=== PATIENT | female | born 1960 | race Caucasian/White ===

== ENCOUNTER 2022-08-10 14:03 | Inpatient (IN) | payer OTHER, BC ==
[~2022-08-10] VITALS: Ht 160 cm; Wt 64.9 kg
[2022-08-10 14:19] LABS: BASOPHILS ABSOLUTE AUTO 0.02 K/mm3 (0.00-0.23); BASOPHILS PERCENT AUTO 0 % (0-2); EOSINOPHILS ABSOLUTE AUTO 0.08 K/mm3 (0.00-0.68); EOSINOPHILS PERCENT AUTO 1 % (0-6); Hemoglobin 12.8 g/dL (11.5-16.0); IMMATURE GRAN ABSOLUTE AUTO 0.06 K/mm3 (0.00-0.10); IMMATURE GRAN PERCENT AUTO 1 % (0-1); LYMPHOCYTES ABSOLUTE AUTO 2.36 K/mm3 (0.84-5.20); LYMPHOCYTES PERCENT AUTO 29 % (21-46); MONOCYTES ABSOLUTE AUTO 0.47 K/mm3 (0.16-1.47); MONOCYTES PERCENT AUTO 6 % (4-13); Mean Corpuscular HGB 32.6 pg (26.0-34.0); Mean Corpuscular HGB Conc 34.6 g/dL (31.5-36.5); Mean Corpuscular Volume 94 fL (80-100); Mean Platelet Volume 11.7 fL (9.1-12.4); NEUTROPHILS ABSOLUTE AUTO 5.27 K/mm3 (1.96-9.15); NEUTROPHILS PERCENT AUTO 64 % (41-73); Platelet Count 208 K/mm3 (150-400); RDW Coefficient Variation 11.8 % (11.7-14.2); RDW Standard Deviation 41.1 fL (35.1-46.3); Red Blood Cell Count 3.93 M/mm3 (3.80-5.20); White Blood Cell Count 8.26 K/mm3 (4.00-11.30)
[2022-08-10 14:36] LABS: Alanine Aminotransfer (ALT/SGP 54 U/L (12-78); Albumin, Blood 3.2 g/dL (3.4-5.0); Albumin/Globulin Ratio 1.2 (0.8-1.8); Alk Phos 65 U/L (50-136); Anion Gap 6 mmol/L (6-16); Aspartate Aminotrans (AST/SGOT 46 U/L (12-37); Bilirubin, Total 0.2 mg/dL (0.1-1.0); Blood Urea Nitrogen 17 mg/dL (8-24); Bun/Creatinine Ratio 31.8 (12.0-20.0); CO2, Blood 27 mmol/L (21-32); Calcium, Blood 8.2 mg/dL (8.5-10.1); Chloride, Blood 109 mmol/L (98-108); Creatinine, Blood 0.53 mg/dL (0.40-1.00); Ethanol (Alcohol), Blood, Med <3 mg/dL; Globulin, Blood 2.6 g/dL (2.2-4.0); Glomerular Filtration Rate 103 (60-); Glucose, Blood 115 mg/dL (70-99); Potassium, Blood 3.7 mmol/L (3.5-5.5); Sodium, Blood 142 mmol/L (136-145); Total Protein, Blood 5.8 g/dL (6.4-8.2)
[2022-08-10] MEDS ORDERED: Tegretol Xr400 MG PO (15:19)
[2022-08-10] MEDS ORDERED: LEVE500 PO (15:19)
[2022-08-10] MEDS ORDERED: MELO7.5 PO (15:20)
[2022-08-10] MEDS ORDERED: ESCI10 PO (15:20)
[2022-08-10] MEDS ORDERED: BUSP10 PO (15:20)
[2022-08-10 15:57] LABS: Source, Urine Clean Catch
[2022-08-10 16:01] LABS: Appearance, Urine Clear (Clear); Bilirubin, Urine Neg (Neg); Blood, Urine 1+ (Neg); Color, Urine Yellow (P-Yellow); Glucose Qualitative, Urine Neg (Neg); Ketones, Urine Neg (Neg); Leukocyte Esterase, Urine Neg (Neg); Nitrite, Urine Neg (Neg); Protein, Urine Neg (Neg); Urobilinogen, Urine NORM (Normal)
[2022-08-10 16:08] LABS: Bacteria Rare /hpf; Squamous Epithelial Cells Rare /hpf (Few); White Blood Cells, Urine 0-2 /hpf (0-5)
[2022-08-10 16:14] LABS: U Amphetamine Screen Not Detected; U Barbituate Screen Not Detected; U Benzodiazapine Screen Not Detected; U Buprenorphine Screen Not Detected; U Cannabinoids Screen Not Detected; U Cocaine Screen Not Detected; U Methadone Screen Not Detected; U Methamphetamine Screen Not Detected; U Opiates Screen DETECTED; U Oxycodone Screen Not Detected; U Phencyclidine Screen Not Detected; U Propoxyphene Screen Not Detected
[2022-08-10] MEDS ORDERED: Simvastatin20 MG PO (21:33)
[2022-08-10] MEDS ORDERED: CARBATROL300 M1 PO (21:58)
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
[2022-08-11 00:12] LABS: Hematocrit 33.5 % (33.0-51.0); Hemoglobin 11.5 g/dL (11.5-16.0)
--- NOTE | 2022-08-11 01:04 | NUR ---
ASSUMED CARE OF PATIENT AT 0012 AFTER TX TO ICU. PT CURRENTLY IN PROCEDURE TO PLACE TEMPORARY PACEMAKER. AUTHOR CALLED [facility] ([phone]) AND LEFT VOICEMAIL TO PLEASE CALL BACK RE: UPDATES. NO DETAIL LEFT ON VM.
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
--- NOTE | 2022-08-11 02:41 | NUR ---
PT RETURNS FROM TV PACER PLACEMENT AT APPROX 0205. SHE LOOKS MORE COMFORTABLE AND SEEMS MORE AWAKE. NO SEDATION GIVEN DURING PROCEDURE. CATH NURSES PERFORMED TEST ON DEVICE AT BEDSIDE; RATE 60, SENSE 5.0, OUTPUT 2.0. PLACED DROP BOOT ON LLE FOR COMFORT AND PT GIVEN PRN MEDICATIONS FOR DISCOMFORT IN L CALF, L ANKLE, R WRIST AND LUMBAR AREA.
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
--- NOTE | 2022-08-11 07:41 | NUR ---
ASSUMED CARE PT IS ALERT AND ORIENTED X4. SPO2 >92% ON RA. MAP >65. RIGHT IJ TRANSVENOUS PACING RATE 60, MA 5, SENS 2. PT HAS GOOD CAP REFILL ON ALL EXTREMETIES AND HAS MINIMAL COMPLAINTS OF PAIN AT TIME OF THIS ASSESSMENT. HR IN THE 60-70S W/ ONE EPISODE OF PACING THIS AM.
--- NOTE | 2022-08-11 10:53 | NUR ---
UPDATE DR LUDWIG IN TO SEE PT. DECISION TO FIX RIGHT WRIST FX TODAY. DR NGUYEN SAID THAT PACEMAKER WILL BE PLACED TOMORROW. SURGICAL PACKET STARTED.
--- NOTE | 2022-08-11 14:08 | NUR ---
UPDATE PT REFUSED TURN. EDUCATED PT ABOUT IMPORTANCE OF REPOSITIONING. ENCOURAGED AND OFFERED TO HELP MOVE LEFT LEG (FX) TO HELP ALLEVIATE PAIN WHEN REPOSITIONING. STILL REFUSED. ADVISED PT TO AT LEAST TRY TO ALTERNATE/REPOSITION BOTTOM MUCH POSSIBLE INDEPENDENTLY.
--- NOTE | 2022-08-11 15:13 | NUR ---
UPDATE TAKEN TO OR BY DR ELIZONDO AND SIOMARA HUERTA.
--- NOTE | 2022-08-11 17:13 | NUR ---
UPDATE PT BACK FROM OR. TRANSCUTANEOUS PACER MALFUNCTIONED AND WAS NOT CAPTURING WHILE PT RUBY'D DOWN TO THE 40S. TRANSVENOUS PACER IS 50CM. DR NGUYEN AWARE. XRAY TO BE TAKEN.
--- NOTE | 2022-08-11 17:19 | NUR ---
UPDATE KANNAN HUERTA FROM [facility] TESTED TRANSVENOUS PACER AND SAW THE DIAPHRAGM AND CHEST WALL WAS MOVING WITH PACER. SHE WILL COMMUNICATE WITH DR NGUYEN W/ RUMAAY RESULTS.
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
--- NOTE | 2022-08-12 04:21 | NUR ---
NO SIGNIFICANT EVENTS OVERNIGHT. VSS. PT SLEEPING WELL.
--- NOTE | 2022-08-12 08:17 | NUR ---
ASSUMED CARE PT IS ALERT AND ORIENTED X4. SPO2 >92% ON RA; MAP >65; HR 60-70S. PT HAD NO RUBY EPISODES/PAUSES OVERNIGHT PER OFFGOING RN. NO C/O OF CP, SOB, OR NAUSEA. PT HAS C/O OF CRAMPING/PAIN IN HER LEFT LEG. REFUSES ATTEMPTS AT REPOSITIONING SIDE TO SIDE OR REMOVAL OF BOOT (BOOT IS NOT ORDERED FOR PT). CAP REFILL <3 AND WARM EXTREMITIES X4. PT ABLE TO WIGGLE FINGERS/TOES IN AFFECTED LIMBS.
--- NOTE | 2022-08-12 16:01 | NUR ---
Rt IJ sheath removal: Temporary pacer wire to rt IJ removed by Dr. Berry yesterday. Sheath to Rt IJ removed at this time, without complications. Direct pressure held for 12 minutes. No s/s of bleeding, hematoma, or air emboli. Clear occlusive dressing in place.
--- NOTE | 2022-08-12 17:04 | NUR ---
ARRIVAL NOTE PT ARRIVE TO THE SURGICAL FLOOR FROM ICU IN HER BED AND WAS TRANSFERRED OVER TO HER NEW BED BY ICU SHEET CATCHER AND PCT. PT PRESENTED IN STABLE CONDITION REPORTING SOME PAIN TO HER L LOWER CALF. WILL CTM.
--- NOTE | 2022-08-13 04:23 | NUR ---
POD2 FOR METACARPAL PINNING. CIRCULATION AND SENSATION REMAINS INTACT. LISA WRAP REMAINS C/D/I. LLE CIRCULATION AND SENSATION REMAINS INTACT. SPLINT ON LLE REWRAPPED, QUARTER SIZE REDDENDED AREA, SLOW TO ALBERTA, NOTED. GAUZE PLACED BETWEEN THE PATIENTS BUNION AND SPLINT. VSS. PT SLEPT WELL T/O THE NIGHT. MEDICATED FOR PAIN WITH NORCO AND FENT FOR BREAKTHROUGH PAIN AT THE BEGINNING OF THE SHIFT. TELE IN PLACE, SR 61, NO ACUTE EVENTS NOTED. PLAN FOR PT TO WORK WITH PT/OT AND BE EVALUATED FOR D/C HOME WITH HH OR SNF. THE PATIENT IS CURRENTLY RESTING, IN NO DISTRESS, CALL LIGHT IN REACH.
[2022-08-13 04:59] LABS: Hematocrit 30.5 % (33.0-51.0); Hemoglobin 10.4 g/dL (11.5-16.0); Mean Corpuscular HGB 32.3 pg (26.0-34.0); Mean Corpuscular HGB Conc 34.1 g/dL (31.5-36.5); Mean Corpuscular Volume 95 fL (80-100); Mean Platelet Volume 11.9 fL (9.1-12.4); Platelet Count 135 K/mm3 (150-400); RDW Coefficient Variation 11.9 % (11.7-14.2); RDW Standard Deviation 41.5 fL (35.1-46.3); Red Blood Cell Count 3.22 M/mm3 (3.80-5.20); White Blood Cell Count 3.64 K/mm3 (4.00-11.30)
[2022-08-13 05:14] LABS: Albumin, Blood 2.5 g/dL (3.4-5.0); Anion Gap 5 mmol/L (6-16); Blood Urea Nitrogen 10 mg/dL (8-24); Bun/Creatinine Ratio 19.5 (12.0-20.0); CO2, Blood 27 mmol/L (21-32); Calcium, Blood 7.7 mg/dL (8.5-10.1); Chloride, Blood 112 mmol/L (98-108); Creatinine, Blood 0.51 mg/dL (0.40-1.00); Glomerular Filtration Rate 104 (60-); Glucose, Blood 91 mg/dL (70-99); Phosphorus, Blood 3.7 mg/dL (2.5-4.9); Potassium, Blood 3.9 mmol/L (3.5-5.5); Sodium, Blood 144 mmol/L (136-145)
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
--- NOTE | 2022-08-14 04:48 | NUR ---
POD3 FOR A RIGHT METACARPAL PINNING. SENSATION AND CIRCULATION REMAIN INTACT IN RUE, DRESSING IS C/D/I. SPLINT ON LLE REMAINS INTACT, CIRCULATION AND SENSATION ARE PRESENT. VSS. PT HAS BEEN NPO SINCE 0000 IN ANTICIPATION FOR PACEMAKER PLACEMENT TODAY. THE PT SLEPT WELL T/O THE NIGHT, WAS ABLE TO AMBULATE MORE IN BED COMPARED TO PREVIOUS SHIFT ASSESSMENT. MEDICATED FOR PAIN WITH NORCO, BENADRYL FOR ITCHING. TELE IN PLACE, SR 52. PT REMAINS ASYMPTOMATIC OF BRADYCARDIA. SHARIF IN PLACE, DRAINING TO GRAVITY. PLAN FOR PT TO D/C TO SNF CLOSER TO [facility] WHERE SHE IS MOVING TO. THE PATIENT IS CURRENTLY SLEEPING, IN NO DISTRESS, CALL LIGHT IN REACH
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
--- NOTE | 2022-08-14 14:14 | NUR ---
1300 TO HEART CENTER VIA BED FOR PACEMAKER PLACEMENT
--- NOTE | 2022-08-14 16:27 | NUR ---
1600 RETURN TO ROOM FROM HEART CENTER. PTS AT BEDSIDE. TELEMETRY SHOWS SR. LEFT UPPER CHEST DRESSING CLEAN, DRY AND INTACT. PT REINSTRUCTED TO NOT RAISE LEFT ARM ABOVE SHOULDER LEVEL. PT DENIES ANY PAIN OR DISCOMFORT TO PACEMAKER SITE
--- NOTE | 2022-08-14 16:47 | NUR ---
LEFT UPPER CHEST DRESSING REMAINS CLEAN,DRY INTACT. NO BRUISING NOTED. MILD EDEMA AT SITE
--- NOTE | 2022-08-14 17:07 | NUR ---
LEFT CHEST PACEMAKER SITE DRESSING CLEAN, DRY AND INTACT. MINIMAL SWELLING AT SITE, NO BRUISING. PT DENIES ANY NUMBNESS OR PAIN OF EXTREMITIES, PT ABLE TO MOVE BILAT TOES AND FINGERS SPONTANEOUSLY. SPLINT IN PLACE TO RIGHT WRIST FINGERS WARM WITH CAPILLARY REFILL LESS THAN 3 SECONDS. LEFT LOWER EXTREMITY SPLINT IN PLACE, TOES PINK, WARM WITH CAPILLARY REFILL LESS THAN 3 SECONDS. PT ORIENTED, SOMETIMES REPEATS SAME QUESTIONS WITHIN A FEW MINUTES. PT CHEERFUL, COOPERATIVE
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
--- NOTE | 2022-08-15 17:19 | NUR ---
DR JOSSELYN LUDWIG HERE TO SEE PATIENT. PT REPORTS PAIN IS ADEQUATELY CONTROLLED. RIGHT ARM SPLINT INTACT. PT DENIES NUMBNESS OR TINGLING. PT REPORTS RIGHT LITTLE FINGER SLIGHTLY PAINFUL AND THAT SHE DID DISCUSS THIS WITH DR GARCIA. LLE SPLINT INTACT AND PT DENIES NUMBNESS OR TINGLING, FEET WARM WITH CAPILLARY REFILL LESS THAN 3 SECONDS. LEFT CHEST PACEMAKER INSERTION SITE WITH SCANT DRIED BLOODY DRAINAGE, NO BRUISING VISIBLE. PT REMOVES LEFT ARM SLING AT TIMES AND NEEDS VERBAL REMINDERS TO NOT RAISE LEFT ARM ABOVE SHOULDER LEVEL. PT MEDICATED X1 WITH PO BENADRYL AND X1 WITH BENADRYL CREAM FOR ITCHY RASH ON BACK.
--- NOTE | 2022-08-16 03:36 | NUR ---
SUMMARY NO NEW ISSUES NOTED. PT DISCOMFORT HAS BEEN MINIMAL. PT HAS BEEN ABLE TO SLEEP WELL. PACEMAKER SITE UNREMARKABLE. PT SHARIF DRAINING TO GRAVITY. CALL LIGHT IN REACH.
[2022-08-16 05:27] LABS: Hematocrit 34.9 % (33.0-51.0); Hemoglobin 12.2 g/dL (11.5-16.0); Mean Corpuscular HGB 32.1 pg (26.0-34.0); Mean Corpuscular Volume 92 fL (80-100); Mean Platelet Volume 11.4 fL (9.1-12.4); Platelet Count 213 K/mm3 (150-400); RDW Coefficient Variation 11.6 % (11.7-14.2); RDW Standard Deviation 38.8 fL (35.1-46.3); White Blood Cell Count 4.01 K/mm3 (4.00-11.30)
[2022-08-16 05:51] LABS: Anion Gap 5 mmol/L (6-16); Blood Urea Nitrogen 13 mg/dL (8-24); Bun/Creatinine Ratio 27.8 (12.0-20.0); CO2, Blood 27 mmol/L (21-32); Calcium, Blood 8.4 mg/dL (8.5-10.1); Chloride, Blood 111 mmol/L (98-108); Creatinine, Blood 0.47 mg/dL (0.40-1.00); Glomerular Filtration Rate 106 (60-); Glucose, Blood 102 mg/dL (70-99); Phosphorus, Blood 3.7 mg/dL (2.5-4.9); Potassium, Blood 3.8 mmol/L (3.5-5.5); Sodium, Blood 143 mmol/L (136-145)
[2022-08-16] MEDS ORDERED: MELO7.5 PO (10:09)
--- NOTE | 2022-08-16 14:39 | NUR ---
SPLINT TO LEFT LEG REMOVED, PER DR LUDWIG ORDERS. KNEE-HIGH COOMPRESSION SOCK PLACED TO BLE, WALKING BOOT FITTED AND PALCED BY [employer].
--- NOTE | 2022-08-16 18:02 | NUR ---
SHIFT [facility] POD 5 PINNING/I & D OF R METATARSALS. GAUZE & SPLINT IN PALCE TO RIGHT WRIST. PAIN MANAGED PER EMAR. SPLINT ON LEFT ANKLE REMOVED TODAY AND WALKING BOOT FITTED AND PLACED. KNEE-HIGH YUE HOSE IN PLACE. PATIENT TRANSFERRING WELL WITH MINIMAL ASSISTANCE TO BSC & CHAIR. NEEDS ENCOURAGMENT TO BE UP OUT OF BED. EATING, DRINKING, & VOIDING WELL. DENIES N/V. POD 2 PACEMAKER PALCEMENT, PATIENT DENIES PAIN TO SITE, DENIES CP/PRESSURE/SOB. SITE APPEARS WNL. LEFT ARM PRECAUTIONS STILL IN PLACE FROM PACEMAKER PLACEMENT. CALLS APPROPRIATELY, WILL REPORT TO ONCOMING RN.
--- NOTE | 2022-08-17 04:13 | NUR ---
SUMMARY NO NEW ISSUES NOTED. PT HAS BEEN AMBULATORY THIS SHIFT. PT HAS BEEN UP TO VOID WITHOUT DIFFICULTY. PT HAD NO TELE ISSUES REPORTED. PT DENIES PAIN AND HAS BEEN RESTING COMFORTABLY. CALL LIGHT IN REACH.
--- NOTE | 2022-08-17 16:18 | NUR ---
SHIFT SUMMARY NO ACUTE CHANGES THIS SHIFT. PATIENT IS POD 6 PERC PINNING/I&D OF RIGHT HAND. SPLINT IN PLACE, C/D/I. WALKING BOOT TO LEFT FOOT D/T LEFT ANKLE FRACTURE. POD 3 FOR PACEMAKER PLACEMENT, DRESSING HAS LIGHT SHADOWING, BUT DRY & INTACT. PATIENT DENIES ANY CP/PRESSURE/SOB T/O SHIFT. MINIMAL PAIN THIS SHIFT, NO PAIN MEDICATIONS REQUIRED. PATIENT UP TO CHAIR FOR MEALS, AMBULATED IN HALLWAYS X1 W/ WALKER AND GB, TOLERATED WELL. HOPEFUL TO GO TO SNF TOMORROW. CALLS APPROPRIATELY, IN REACH. WILL REPORT TO ONCOMING RN AT 1900.
--- NOTE | 2022-08-18 03:54 | NUR ---
SUMMARY NO NEW ISSUES NOTED. PT HAS BEEN RESTING COMFORTABLY THROUGHOUT SHIFT. PT CURRENTLY SLEEPING AND IN NO DISTRESS. CALL LIGHT IN REACH.
--- NOTE | 2022-08-18 17:58 | NUR ---
SHIFT SUMMARY PT HAS DONE WELL TODAY. WORKED w/ BOTH PT&OT. AMBULATED IN HALLWAYS x 2. UP TO CHAIR FOR MEALS. PAIN WELL CONTROLLED w/ TYLENOL. WAITING FOR SNF PLACEMENT.
--- NOTE | 2022-08-19 07:43 | NUR ---
SUMMARY PT MED X 1 PO TONIGHT FOR PAIN. VERB EFFECTIVE. OOB WITH WALKER AND ASSIST. PT IS ABLE TO MAINTAIN APPROPRIATE PRECAUTIONS.
--- NOTE | 2022-08-19 18:31 | NUR ---
SHIFT SUMMARY PT HAS DONE WELL TODAY. WORKED w/ BOTH PT&OT. AMBULATED IN HALLWAYS x 2. UP TO CHAIR FOR MEALS. PAIN WELL CONTROLLED w/ NORCO. WAITING FOR SNF PLACEMENT.
--- NOTE | 2022-08-20 05:47 | NUR ---
SHIFT SUMMARY NO ACUTE CHANGES T/O SHIFT. REPOSITIONING FREQUENTLY FOR TAILBONE PAIN. 2 NORCO PER ORDERS FOR PAIN. 1 ASSIST USING FWW + GB TO BRP. LISA WRAP TO RIGHT ARM REMAINS CDI. BOOT REMAINS IN PLACE TO LLE. PACEMAKER DRESSING TO LEFT CHEST WALL REMAINS CDI. USES CALL LIGHT APPROPRIATELY.
--- NOTE | 2022-08-20 11:00 | NUR ---
THERAPY DOG INTO SEE PT; PT ENJOYED VERY MUCH.
--- NOTE | 2022-08-21 05:27 | NUR ---
BEAM DYER RECESSED VAT SUMMARY NO ACUTE CHANGES THIS SHIFT. PT AAOX4 AND VERY PLEASANT. PT DOES WELL WITH A STANDBY ASSIST USING A FWW WITH ARM PLATFORMS. PT IS VERY CAUTIOUS WITH HER ARMS IN REGARDS TO HER PACEMAKER PRECAUTIONS. MEDICATED FOR PAIN WITH 2 TABS HYDROCODONE. VSS. PT WAITING PLACEMENT AT [facility] IN [place] NEAR HER HOME. WILL CONTINUE TO MONITOR.
--- NOTE | 2022-08-22 04:08 | NUR ---
SHIFT SUMMARY: PT RESTED COMFORTABLY T/O THE NIGHT. BOOT REMAINS ON LEFT FOOT AND SPLINT ON RIGHT ARM. PT PAIN WELL CONTROLLED VIA EMAR ORDERS. EATING, DRINKING, VOIDING. NO NEW CHANGES AT THIS TIME. VITAL SIGNS REMAINED STABLE. AWAITING SNF PLACEMENT. PT RESTING AT THIS TIME WITH CALL LIGHT IN REACH.
[2022-08-22 11:27] LABS: SARS-Cov-2 (COVID-19) PCR, MMC NEGATIVE (NEGATIVE)
--- NOTE | 2022-08-22 13:43 | NUR ---
TRANSPORT HERE FOR PT AT ABOUT 1210. TRANSPORT GIVEN DC PACKET.
--- NOTE | 2022-08-22 16:09 | NUR ---
REPORT CALLED TO [facility] AT ABOUT 1400
== END 2022-08-22 12:37 | DRG 243 ==
LOC: ER 14:03 → SURS 17:13 → ICUE 17:13 → SURS 17:13 → ICUE 08-11 00:15 → SURS 08-12 16:54
PROVIDERS: Internal Medicine; Nurse Practitioner Acute Care; Student in an Organized Health Care Education/Training Program; ADMIT Surgery
PROC: 3E0234Z Introduction of Serum, Toxoid and Vaccine into Muscle, Percutaneous Approach (ICD-10-PCS; 2022-08-10)
PROC: 0PSP34Z Reposition Right Metacarpal with Internal Fixation Device, Percutaneous Approach (ICD-10-PCS; 2022-08-11)
PROC: 5A1223Z Performance of Cardiac Pacing, Continuous (ICD-10-PCS; 2022-08-11)
PROC: 02HK3JZ Insertion of Pacemaker Lead into Right Ventricle, Percutaneous Approach (ICD-10-PCS; 2022-08-11)
PROC: 0JH606Z Insertion of Pacemaker, Dual Chamber into Chest Subcutaneous Tissue and Fascia, Open Approach (ICD-10-PCS; principal; 2022-08-14)
PROC: 02H63JZ Insertion of Pacemaker Lead into Right Atrium, Percutaneous Approach (ICD-10-PCS; 2022-08-14)
PROC: 02HK3JZ Insertion of Pacemaker Lead into Right Ventricle, Percutaneous Approach (ICD-10-PCS; 2022-08-14)
DX: I49.5 Sick sinus syndrome (principal); I44.2 Atrioventricular block, complete; S62.334 Displaced fracture of neck of fourth metacarpal bone, right hand; T82.128A Displacement of other cardiac electronic device, initial encounter; S62.336B Displaced fracture of neck of fifth metacarpal bone, right hand, initial encounter for open fracture; Z20.822 Contact with and (suspected) exposure to COVID-19; Z23 Encounter for immunization; E78.5 Hyperlipidemia, unspecified; S82.842A Displaced bimalleolar fracture of left lower leg, initial encounter for closed fracture; F41.9 Anxiety disorder, unspecified; G40.909 Epilepsy, unspecified, not intractable, without status epilepticus; F32.A Depression, unspecified; Z88.2 Allergy status to sulfonamides; Z88.6 Allergy status to analgesic agent; Z88.8 Allergy status to other drugs, medicaments and biological substances; Z91.048 Other nonmedicinal substance allergy status; V47.6XXA Car passenger injured in collision with fixed or stationary object in traffic accident, initial encounter; Y92.410 Unspecified street and highway as the place of occurrence of the external cause
CPT/HCPCS: 29125; 29515; 33208; 33210; 36415; 51702; 70450; 71045; 71046; 71260; 72125; 73130; 73610; 74177; 76937; 80053; 80069; 80156; 80177; 81001; 82947; 83690; 83735; 84146; 84443; 84484; 85014; 85018; 85025; 85027; 90471; 90714; 93005; 93010; 93306; 96361-59; 96374-59; 96375-59; 96376-59; 97110; 97116; 97162; 97166; 97530; 97535; 99152; 99153; 99285-25; A9270; C1781; C1785; C1894; C1898; G0480; J0690; J1100; J1200; J1644; J1650; J1885; J2250; J2270; J2405; J2704; J3010; J7030; J7040; J7050; J7120; Q9967; U0004